=== PATIENT | female | born 1965 | race Caucasian/White ===

== ENCOUNTER 2023-02-23 08:29 | Emergency (ER) | payer BC ==
[2023-02-23 09:14] VITALS: O2SAT 95
--- NOTE | 2023-02-23 09:29 | ERPHSYRPT ---
- History of Present Illness Time Seen by Provider: 02/23/23 08:33 Source: patient Exam Limitations: no limitations Patient Subjective Stated Complaint: C/O cellulitis to Left lower anterior arm. Patient states that she went to the [facility] clinic yesterday. She indicates that they gave her an antibiotic injection and a prescription with instructions to return if she started to run a fever or if the redness to her arm started to spread outside of the margins that they [place] on her. Triage Nursing Assessment: Patient ambulated back to ER without difficulties. No SOB. She is alert and oriented. Left anterior forearm is red and warm to touch. There is a marker outline draw on it that patient states was drawn on yesterday by the [facility]. The redness has spread outside of the margins. Patient reports a temperature of 100.5 at home this am; temp here is 98.5. Patient states she has not taken any fever reducing meds this am. There is a pustule with redness around it noted to her left anterior wrist as well. The patient states that her wrist is where the infection began. Physician History: Left arm cellulitis. Seen yesterday. And patient was put on clindamycin. Since then has slightly spread outside the area of redness. Patient initially has an abscess at her left wrist. States it has become more full, fluctuance over the same time. Patient did have a fever at home. Did not take any antip yretics. And has not had a fever here. Allergies/Adverse Reactions: No Known Drug Allergies Allergy (Verified 02/23/23 08:59) Home Medications: Albuterol Sulfate [Albuterol Sulfate Hfa] 2 puff PO Q4H PRN PRN 02/23/23 [History] Budesonide/Formoterol Fumarate [Budesonide-Formoterol 160-4.5] 2 puff PO BID 02/23/23 [History] clindamycin HCL [Clindamycin HCl] 1 cap PO BID 02/23/23 [History] Hx Tetanus, Diphtheria Vaccination/Date Given: Yes Hx Influenza Vaccination/Date Given: No Hx Pneumococcal Vaccination/Date Given: No Immunizations Up to Date: Yes Travel Risk - International Travel Have you traveled outside of the country in past 3 weeks: No - Coronavirus Screening Are you exhibiting any of the following symptoms?: No Close contact with a COVID-19 positive Pt in past 14-21 Days: No - Vaccine Status Have you recieved a Covid-19 vaccination: No - Review of Systems Constitutional: No Fever, No Chills Eyes: No Symptoms Ears, Nose, & Throat: No Symptoms Respiratory: No Cough, No Dyspnea Cardiac: No Chest Pain, No Edema, No Syncope Abdominal/Gastrointestinal: No Abdominal Pain, No Nausea, No Vomiting, No Diarrhea Genitourinary Symptoms: No Dysuria Musculoskeletal: Other (Left wrist abscess with cellulitis), No Back Pain, No Neck Pain Skin: No Rash Neurological: No Dizziness, No Focal Weakness, No Sensory Changes Psychological: No Symptoms Endocrine: No Symptoms All Other Systems: Reviewed and Negative - Past Medical History Pertinent Past Medical History: Yes Neurological History: No Pertinent History ENT History: No Pertinent History Cardiac History: Hypertension Respiratory History: Asthma, Sleep Apnea Endocrine Medical History: No Pertinent History Musculoskeletal History: Arthritis GI Medical History: No Pertinent History History: No Pertinent History Psycho-Social History: No Pertinent History Female Reproductive Disorders: Other Other Medical History: R ovarian cyst - Past Surgical History Past Surgical History: No Neuro Surgical History: No Pertinent History Cardiac: No Pertinent History Gastrointestinal: No Pertinent History Genitourinary: No Pertinent History Musculoskeletal: No Pertinent History Female Surgical History: No Pertinent History - Social History Smoking Status: Former smoker Exposure to second hand smoke: No Drug Use: none Patient Lives Alone: No - Nursing Vital Signs Nursing Vital Signs: Initial Vital Signs Temperature 98.5 F 02/23/23 09:04 Pulse Rate 92 H 02/23/23 09:04 Respiratory Rate 18 02/23/23 09:04 Blood Pressure 144/96 02/23/23 09:04 O2 Sat by Pulse Oximetry 95 02/23/23 09:04 Pain Scale Pain Intensity 3 - Physical Exam General Appearance: no apparent distress, alert Eye Exam: PERRL/EOMI, eyes nml inspection Ears, Nose, Throat Exam: normal ENT inspection, TMs normal, pharynx normal, moist mucous membranes Neck Exam: normal inspection, non-tender, supple, full range of motion Respiratory Exam: normal breath sounds, lungs clear, No respiratory distress Cardiovascular Exam: regular rate/rhythm, normal heart sounds, normal peripheral pulses Gastrointestinal/Abdomen Exam: soft, normal bowel sounds, No tenderness, No mass Back Exam: normal inspection, normal range of motion, No CVA tenderness, No vertebral tenderness Extremity Exam: normal inspection, normal range of motion, pelvis stable, other (Left wrist demonstrates 0.5 x 0.5 cm abscess with fluctuance. Some surrounding cellulitis and redness. No other firm abscess.) Neurologic Exam: alert, oriented x 3, cooperative, normal mood/affect, nml cerebellar function, nml station & gait, sensation nml, No motor deficits Skin Exam: normal color, warm, dry, No rash Lymphatic Exam: No adenopathy SpO2: 95 Procedures - Incision and Drainage Time of Procedure: 09:42 Site: left wrist Anesthesia: 1% Lidocaine cc's of anesthesia: 2 Blade Size: other (18 gauge needle aspiration) I & D Procedure: betadine prep Results: small amount pus - Course Nursing assessment & vital signs reviewed: Yes - Progress Progress: improved Progress Note: 02/23/23 09:42 We did perform a needle aspiration of the abscess. See procedure note for full details. This did yield some purulent drainage. I do believe that this will help with patient's infection. We will also add Keflex on to get broader coverage she will continue to take her clindamycin. Plan for close follow-up and reexam with PCP 2 to 3 days. May return here sooner for new or changing symptoms. - Departure Departure Disposition: Home Clinical Impression: Cellulitis and abscess of leg Condition: Stable Critical Care Time: No Referrals: HYUN LEVY NP [Primary Care Provider] - Follow up/PCP as directed Instructions: Skin Abscess, Cellulitis (Skin Infection), Adult ED Prescriptions: Cephalexin Mh 500 mg [Keflex 500 mg] 500 mg PO BID 10 Days #20 cap
[2023-02-23 09:45] VITALS: BP 120/91; PULSE 74
== END 2023-02-23 09:37 | disposition home or self-care (01) ==
LOC: ED 08:29
DX: L02.414 Cutaneous abscess of left upper limb (principal); L03.114 Cellulitis of left upper limb; I10 Essential (primary) hypertension; Z79.899 Other long term (current) drug therapy; Z28.310 Unvaccinated for COVID-19
CPT/HCPCS: 10060; 99281